=== PATIENT | female | born 1940 | race Caucasian/White ===

== ENCOUNTER 2016-08-09 08:49 | Inpatient (IN) | payer MEDICARE, OTHER ==
[~2016-08-09 08:49] MED LIST: ATIVAN2 MG PO; CALCIUM + VITA1 EACH PO; COLESTID1 GM PO; COUMADIN1 MG PO; FLEXERIL10 MG PO; LEVAQUIN250 MG PO; LEXAPRO 10MG TA10 MG PO; PERCOCET 5-3251 EACH PO; PHOSLO667 MG PO; PROTONIX40 MG PO; TOPROL XL 50 MG50 MG PO
[2016-08-09 10:10] LABS: BILIRUBIN NEGATIVE (NEGATIVE); BLOOD 2+ Ery/uL (NEGATIVE); CLARITY HAZY (CLEAR); COLOR YELLOW (YELLOW); GLUCOSE (U) NORMAL (NORMAL); KETONE (U) TRACE mg/dL (NEGATIVE); LEUKOCYTES 3+ Leu/uL (NEGATIVE); NITRITE NEGATIVE (NEGATIVE); PROTEIN 3+ mg/dL (NEGATIVE); UROBILINOGEN 0.2 mg/dL (0.2-1.0); pH 6.5 (5.0-9.0)
[2016-08-09 10:15] LABS: BACTERIA 2+; URINARY WBC TNTC
[2016-08-09 10:18] LABS: BASOPHIL 0.7 % (0-2); EOSINOPHIL 3.1 % (0-7); HCT 22.7 % (37.0-47.0); LYMPHOCYTE 6.8 % (15-48); MCH 33.6 pg (25.0-31.0); MCHC 33.5 g/dL (32.0-36.0); MCV 100.4 fL (78.0-100.0); MONOCYTE 16.1 % (0-12); MPV 9.3 fL (6.0-9.5); NEUTROPHIL 73.3 % (41-80); PLT 204 K/uL (150-400); RDW 14.5 % (11.5-14.0); WBC 7.5 K/uL (4.0-10.5)
[2016-08-09 10:20] LABS: HGB 7.6 g/dl (12.5-16.0)
[2016-08-09 10:21] LABS: RBC 2.26 M/uL (4.20-5.40)
[2016-08-09 10:43] LABS: CREATININE 4.2 mg/dL (0.5-1.0)
[2016-08-09 13:04] LABS: INR 2.19 (0.9-1.2); PROTHROMBIN TIME 23.7 SECONDS (11.7-14.0)
[2016-08-09 13:20] LABS: LACTIC ACID 1.6 mmol/L (0.5-2.2)
[2016-08-09 19:35] LABS: BILIRUBIN NEGATIVE (NEGATIVE); BLOOD 3+ Ery/uL (NEGATIVE); COLOR YELLOW (YELLOW); GLUCOSE (U) NORMAL (NORMAL); KETONE (U) TRACE mg/dL (NEGATIVE); LEUKOCYTES 3+ Leu/uL (NEGATIVE); NITRITE NEGATIVE (NEGATIVE); PROTEIN 3+ mg/dL (NEGATIVE); UROBILINOGEN 0.2 mg/dL (0.2-1.0); pH 6.5 (5.0-9.0)
[2016-08-09 19:42] LABS: CLARITY TURBID (CLEAR)
[2016-08-09 19:51] LABS: URINARY WBC TNTC
[2016-08-09 19:57] LABS: BACTERIA 4+
[2016-08-09 19:59] LABS: MUCOUS MODERATE; URINARY RBC 20-50
[2016-08-10 06:41] LABS: HGB 9.5 g/dl (12.5-16.0); MCH 33.3 pg (25.0-31.0); MCHC 33.9 g/dL (32.0-36.0); MCV 98.2 fL (78.0-100.0); MPV 8.9 fL (6.0-9.5); RBC 2.85 M/uL (4.20-5.40); RDW 14.4 % (11.5-14.0); WBC 7.6 K/uL (4.0-10.5)
[2016-08-10 06:49] LABS: INR 2.64 (0.9-1.2); PROTHROMBIN TIME 27.5 SECONDS (11.7-14.0)
[2016-08-10 07:00] LABS: ALBUMIN 3.6 g/dL (3.4-4.8); BILIRUBIN - TOTAL 0.2 mg/dL (0.1-1.0); CREATININE 4.9 mg/dL (0.5-1.0); GLOBULIN (CALCULATION) 3.7 g/dL (2.2-4.2); POTASSIUM 4.5 mmol/L (3.5-5.1); TOTAL PROTEIN 7.3 g/dL (6.4-8.3)
[2016-08-10 07:01] LABS: IRON 61 ug/dL (44-196); IRON % SATURATION 24 %SAT (20-50); TIBC (TOTAL IRON + UIBC) 256 U/L (228-428); UIBC 195 ug/dL (112-346)
[2016-08-11 05:33] LABS: MCHC 34.6 g/dL (32.0-36.0); MCV 98.1 fL (78.0-100.0); MPV 8.7 fL (6.0-9.5); RBC 2.65 M/uL (4.20-5.40); RDW 14.7 % (11.5-14.0); WBC 6.7 K/uL (4.0-10.5)
[2016-08-11 05:58] LABS: POTASSIUM 4.2 mmol/L (3.5-5.1)
[2016-08-12 06:00] LABS: HCT 28.1 % (37.0-47.0); HGB 9.5 g/dl (12.5-16.0); MCH 33.2 pg (25.0-31.0); MCHC 33.8 g/dL (32.0-36.0); MCV 98.3 fL (78.0-100.0); MPV 9.3 fL (6.0-9.5); RBC 2.86 M/uL (4.20-5.40); RDW 14.6 % (11.5-14.0); WBC 6.9 K/uL (4.0-10.5)
[2016-08-12 06:21] LABS: CREATININE 4.4 mg/dL (0.5-1.0); PHOSPHORUS 3.2 mg/dL (2.7-4.5); POTASSIUM 4.2 mmol/L (3.5-5.1)
[2016-08-13 05:46] LABS: HGB 8.9 g/dl (12.5-16.0); MCH 33.3 pg (25.0-31.0); MCHC 34.2 g/dL (32.0-36.0); MCV 97.4 fL (78.0-100.0); MPV 9.1 fL (6.0-9.5); RBC 2.67 M/uL (4.20-5.40); RDW 14.2 % (11.5-14.0); WBC 6.4 K/uL (4.0-10.5)
[2016-08-13 06:07] LABS: CREATININE 2.9 mg/dL (0.5-1.0); POTASSIUM 3.6 mmol/L (3.5-5.1)
[2016-08-13] MEDS ORDERED: COUMADIN7.5 MG PO (11:44)
[2016-08-13] MEDS ORDERED: LIPITOR 10MG TA10 MG PO (11:44)
[2016-08-13] MEDS ORDERED: KEPPRA250 MG PO (11:44)
== END 2016-08-13 12:51 | disposition home health service (06) | DRG 871 ==
LOC: FER 08:49 → FMS 14:08
PROVIDERS: Emergency Medicine; Internal Medicine Adolescent Medicine; Internal Medicine Nephrology; ADMIT Internal Medicine
PROC: 5A1D60Z (ICD-10-PCS; principal; 2016-08-10)
DX: A41.9 Sepsis, unspecified organism (principal); N18.6 End stage renal disease; I12.0 Hypertensive chronic kidney disease with stage 5 chronic kidney disease or end stage renal disease; F03.90 Unspecified dementia, unspecified severity, without behavioral disturbance, psychotic disturbance, mood disturbance, and anxiety; N39.0 Urinary tract infection, site not specified; E87.1 Hypo-osmolality and hyponatremia; Z99.2 Dependence on renal dialysis; I73.9 Peripheral vascular disease, unspecified; D63.1 Anemia in chronic kidney disease; J44.9 Chronic obstructive pulmonary disease, unspecified; M19.90 Unspecified osteoarthritis, unspecified site; E55.9 Vitamin D deficiency, unspecified; R53.1 Weakness; B96.20 Unspecified Escherichia coli [E. coli] as the cause of diseases classified elsewhere; F32.9 Major depressive disorder, single episode, unspecified; Z98.84 Bariatric surgery status; Z86.73 Personal history of transient ischemic attack (TIA), and cerebral infarction without residual deficits; Z88.0 Allergy status to penicillin; Z85.3 Personal history of malignant neoplasm of breast; Z88.1 Allergy status to other antibiotic agents; Z89.422 Acquired absence of other left toe(s); Z89.421 Acquired absence of other right toe(s); Z88.5 Allergy status to narcotic agent; Z93.2 Ileostomy status; Z87.891 Personal history of nicotine dependence; Z79.01 Long term (current) use of anticoagulants
CPT/HCPCS: 36415; 71010; 80048; 80053; 80170; 81001; 82607; 82728; 83540; 83550; 83605; 84100; 85025; 85610; 85730; 86707; 86850; 86880; 86900; 86901; 87040; 87076; 87088; 87186; 87350; 92526; 93005; 97162; 97167; 97530; 97530-GP; 97532; 97535; J1580; J2185; J2405